=== PATIENT | male | born 1990 | race Asian ===

== ENCOUNTER 2019-02-15 10:25 | Inpatient (IN) | payer MEDICAID, OTHER ==
[~2019-02-15] VITALS: Ht 170.2 cm; Wt 73.4 kg
[2019-02-15 10:28] VITALS: Ht 170.2 cm; Wt 73.4 kg
[2019-02-15] MEDS ORDERED: SOD CHLORIDE 0.9% 0 ML IV ONE (11:15)
[2019-02-15] MEDS ORDERED: IOHEXOL 300MG/ML 150 ML BTL ONE (11:34)
[2019-02-15] MEDS ORDERED: SOD CHLORIDE 0.9% 100 ML ONE (11:34)
--- NOTE | 2019-02-15 13:17 | ERD ---
ER Documentation Chief Complaint Chief Complaint pt is bib self sent by urgent care for low hgb, HPI 28-year-old male who presents to the emergency room for evaluation of anemia. The patient has had several weeks of gross hematuria that has been worked up by Dr. Vuong, urologist. However the patient was having preop investigation for cystoscopy and was noted to have a low hemoglobin. The patient does describe some fatigue and malaise over the last several days. He denies any chest pain or significant shortness of breath. Patient states that his gross hematuria last occurred yesterday. He has no abdominal pain and no flank pain. No recent falls or injuries. ROS All systems reviewed and are negative except as per history of present illness. Medications Home Meds No Active Prescriptions or Reported Meds Allergies Allergies: Coded Allergies: No Known Allergy (Unverified , 02/15/19) PMhx/Soc History of Surgery: No Anesthesia Reaction: No Hx Neurological Disorder: No Hx Respiratory Disorders: No Hx Cardiac Disorders: No Hx Psychiatric Problems: No Hx Miscellaneous Medical Probl: No Hx Alcohol Use: No Hx Substance Use: No Hx Tobacco Use: No Smoking Status: Never smoker FmHx Family History: No diabetes Physical Exam Vitals Vital Signs Date Temp Pulse Resp B/P (MAP) Pulse Ox O2 O2 Flow FiO2 Time Delivery Rate 02/15/19 98.6 78 18 108/67 100 Room Air 12:53 (81) 02/15/19 98.3 96 16 130/62 98 10:28 (84) Physical Exam General: Pallor, no distress Head: Normocephalic, atraumatic. Eyes: Pupils equally reactive, EOM intact ENT: Moist mucous membranes Neck: Supple, no lymphadenopathy Respiratory: Lungs clear bilaterally, no distress Cardiovascular: RRR, no murmurs, rubs, or gallops Abdominal: Soft, non-tender, non-distended, no peritoneal signs : Deferred MSK: No edema, no unilateral swelling, 5/5 strength Neurologic: Alert and oriented, moving all extremities, normal speech, no focal weakness, no cerebellar signs Skin: No rash, no petechia or purpura Psych: Normal mood Result Diagram: 02/15/19 1040 02/15/19 1040 Results 24 hrs Laboratory Tests Test 02/15/19 10:40 White Blood Count 2.5 10^3/ul Red Blood Count 3.78 10^6/ul Hemoglobin 5.5 g/dl Hematocrit 21.1 % Mean Corpuscular Volume 55.8 fl Mean Corpuscular Hemoglobin 14.6 pg Mean Corpuscular Hemoglobin Concent 26.1 g/dl Red Cell Distribution Width 19.7 % Platelet Count 361 10^3/UL Mean Platelet Volume fl Immature Granulocytes % 0.400 % Neutrophils % 50.8 % Lymphocytes % 34.5 % Monocytes % 11.5 % Eosinophils % 1.6 % Basophils % 1.2 % Nucleated Red Blood Cells % 0.0 /100WBC Immature Granulocytes # 0.010 10^3/ul Neutrophils # 1.3 10^3/ul Lymphocytes # 0.9 10^3/ul Monocytes # 0.3 10^3/ul Eosinophils # 0.0 10^3/ul Basophils # 0.0 10^3/ul Nucleated Red Blood Cells # 0.0 10^3/ul Pathologist Review (Hematology) YES Prothrombin Time 13.2 Sec Prothrombin Time Ratio 1.0 INR International Normalized Ratio 0.99 Activated Partial Thromboplast Time 27.5 Sec Sodium Level 141 mmol/L Potassium Level 3.9 mmol/L Chloride Level 107 mmol/L Carbon Dioxide Level 26 mmol/L Anion Gap 8 Blood Urea Nitrogen 12 mg/dl Creatinine 0.83 mg/dl Est Glomerular Filtrat Rate mL/min > 60 mL/min Glucose Level 109 mg/dl Calcium Level 8.8 mg/dl Total Bilirubin 0.5 mg/dl Direct Bilirubin 0.00 mg/dl Indirect Bilirubin 0.5 mg/dl Aspartate Amino Transf (AST/SGOT) 16 IU/L Alanine Aminotransferase (ALT/SGPT) 23 IU/L Alkaline Phosphatase 47 IU/L Total Protein 7.2 g/dl Albumin 4.4 g/dl Globulin 2.80 g/dl Albumin/Globulin Ratio 1.57 Current Medications Medications Dose Sig/Niraj Start Time Status Last (Trade) Ordered Route PRN Stop Time Admin Dose Reason Admin Sodium 0 ml @ 0 Q0M ONCE 02/15/19 DC 02/15/19 Chloride mls/hr IV 11:15 12:55 02/15/19 11:17 IV Flush 10 ml STK-MED 02/15/19 DC 02/15/19 (NS 10 ml) ONCE .ROUTE 11:33 11:58 02/15/19 11:34 Sodium 100 ml @ ud STK-MED 02/15/19 DC 02/15/19 Chloride ONCE .ROUTE 11:34 11:58 02/15/19 11:35 Iohexol 150 ml STK-MED 02/15/19 DC 02/15/19 (Omnipaque ONCE .ROUTE 11:34 11:58 300mg/ ml) 02/15/19 11:35 Procedures/MDM EKG, MONITORS, & DIAGNOSTIC IMAGING: CXR Chest x-ray: I reviewed and interpreted a 1 view of the chest Mediastinum: No enlargement Cardiac silhouette: No cardiomegaly Airspace: Clear lung ferrara bilaterally without evidence of pneumothorax Bones: No evidence of fracture CT urogram: IMPRESSION: Unremarkable CT urogram, no evidence of urolithiasis or obstructive uropathy. LAB INTERPRETATION: I reviewed the laboratory testing and it shows white blood count of 2.5 and hemoglobin of 5.5, microcytic, normal platelets MEDICAL DECISION MAKING: The patient has been dealing with gross hematuria for subacute timeframe. The patient has evidence of symptomatic anemia with a hemoglobin of 5.5. Patient's white blood cell count is slightly low but platelets are normal. This is more likely related to acute phase reactant rather than blood malignancy [facility] hematology oncology consultation may be reasonable. I discussed the case with Dr. Vuong, the patient's urologist who recommends CT urogram. He will consult on the patient as an inpatient. I discussed with the patient and/or family the risks, benefits, alternatives of blood transfusion. This includes allergic reaction and infections including HIV and hepatitis. The patient and/or family were able to verbalize these risks, stated understanding. A document has been signed and placed in the chart. ER COURSE: * The patient was transfused 2 units of packed red blood cells. He remains him dynamically stable. Urology is notified. The patient will be admitted for further management. He is n.p.o. CONSULTATION: Urology: Dr. Vuong DISPOSITION PLAN: Accepting care team and consultations: I discussed the current laboratory data, diagnostic imaging and emergency care provided. Admitting team: Dr. Negro Admitting team indication: Insurance directed Departure Diagnosis: Primary Impression: Gross hematuria Additional Impression: Symptomatic anemia Condition: Stable MISTY CAMP MD Feb 15, 2019 13:17
[2019-02-15] MEDS ORDERED: ACETAMINOPHEN 325 MG TAB PO PRN ×2 (13:30→14:30)
[2019-02-15] MEDS ORDERED: ONDANSETRON 4 MG INJ IV PRN ×2 (13:30→14:30)
[2019-02-15] MEDS ORDERED: NACL 0.9% 3 ML SYG IV SCH (14:30)
--- NOTE | 2019-02-15 14:32 | HP ---
Date/Time of Note Date/Time of Note DATE: 02/15/19 TIME: 14:20 Assessment/Plan VTE Prophylaxis SCD applied (from Nsg): Yes Pharmacological prophylaxis: NA/contraindicated Pharm contraindication: low risk/ambulating Lines/Catheters IV Catheter Type (from Nrs): Saline Lock Assessment/Plan Assessment/Plan 28 Telugu man no PMH presents with chronic gross painless hematuria. #Gross hematuria - Painless. Has been constant for months. - Symptoms unfortunately have resolved for past several days. Current UA totally clear except for 1+ RBCs. - CT urogram negative. - Will send urine calcium/Cr ratio to assess for hypercalciuria - Dr. Vuong following. Plan for cystoscopy (possibly) this admission. #Anemia - Due to chronic hematuria - Transfuse to Hgb>7 - Will admit to med/surg DVT: SCDs GI: None Result Diagram: 02/15/19 1040 02/15/19 1040 HPI/ROS Admit Date/Time Admit Date/Time 02/15/2019 Hx of Present Illness Mr. Cartagena is a pleasant 28 yo Telugu man who presents to the ED with severe anemia after months of gross hematuria. Symptoms first started about 7 months ago, he suddenly noticed his urine was dark red (pointed to the blood transfusion tubing and said it was that color). Mostly painless; although he says he sometimes has vague aching groin pain at the base of his penis. Gross hematuria has been constant for these months, he says only sometimes the urine turns light red or pink. He visited Dr. Vuong's urology clinic and has had two cystoscopies already, which the patient said were inconclusive. The patient last had gross hematuria on Monday. However for the past week he reports urine has actually been clear yellow. The patient was on vacation in [place] this past week and noticed that he was very dyspneic on exertion and sometimes had heart palpitations. On Monday when he came back to [place] he had lab work done. Today (Monday) he was called by Dr. Vuong's office and said he was very anemic (Hgb 5.5) and told to come to the ED. This is his first hospital admission and first blood transfusion ever. In the ED he was afebrile, vitals normal. Labs notable for anemia to 5.5, WBC 2.5. BMP unremarkable. CT urogram showed some benign phleboliths, otherwise unremarkable. ROS Denies recent fever, chills, weight loss, night sweats, anorexia, fatigue, headache, vision changes, dizziness, vertigo, dysphagia, sore throat, neck pain/stiffness, chest pain/pressure, cough, dyspnea, nausea, vomiting, abdominal pain, muscle aches, diarrhea, constipation, melena, hematochezia. PMH/Family/Social Past Medical History Medical History: no pertinent history Medications Current Medications Ondansetron HCl (Zofran Inj) 4 mg BRIDGE ORDER PRN IV NAUSEA/VOMITING; Start 02/15/19 at 13:30; Stop 02/16/19 at 13:29 Acetaminophen (Tylenol Tab) 650 mg ER BRIDGE PRN PO .MILD PAIN 1-3 OR TEMP; Start 02/15/19 at 13:30; Stop 02/16/19 at 13:29 IV Flush (NS 3 ml) 3 ml PER PROTOCOL IV ; Start 02/15/19 at 14:30; Status UNV Ondansetron HCl (Zofran Inj) 4 mg Q6H PRN IV NAUSEA/VOMITING; Start 02/15/19 at 14:30; Status UNV Acetaminophen (Tylenol Tab) 650 mg Q6H PRN PO .PAIN 1-3 OR TEMP; Start 02/15/19 at 14:30; Status UNV Coded Allergies: No Known Allergy (Unverified , 02/15/19) Past Surgical History Past Surgical Hx: no surgical history Family History Significant Family History: other (Father had aneurysm and possible lung cancer. Mother has hypertension and "big heart". Patient is an only child. No kn own history of kidney or bladder problems or cancer.) Social History Born and raised in [facility]. Since symptoms started he has travelled to [place] and also the [place]. About 2-3 years ago he travelled to [facility] where he stayed with relatives in [facility] for 2 months. He did take trips to rural areas. Had several mosquito bites. 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 Alcohol Use: sober Smoking Status: Never smoker Drug Use: none Exam/Review of Systems Vital Signs Vitals Vital Signs Date Temp Pulse Resp B/P (MAP) Pulse Ox O2 O2 Flow FiO2 Time Delivery Rate 02/15/19 98.6 78 18 108/67 100 Room Air 12:53 (81) Exam Exam Gen: Well appearing young man sitting up in bed in no acute distress. Eyes: PERRL, no icterus, EOMI HEENT: Moist mucous membranes, clear oropharynx Neck: No lymphadenopathy, supple Card: Regular rate and rhythm, no murmurs Pulm: Clear to auscultation bilaterally Abd: Soft, nontender, nondistended. No palpable heptosplenomegaly. No suprapubic tenderness. Back: No costovertebral angle tenderness. : Testicles small, firm, nontender; epidydimus soft, nontender, penis circumcised, no discharge or lesions. Petechiae on undersurface of scrotum. Ext: No cyanosis/clubbing/edema KIMBERLY HOFFMAN MD Feb 15, 2019 14:30
[2019-02-15 17:24] VITALS: BP 103/59; PULSE 72; RESP 18
[2019-02-15 19:45] VITALS: BP 92/51; PULSE 70; RESP 18
[2019-02-15 20:45] VITALS: BP 96/54; PULSE 68; RESP 18
[2019-02-16 04:38] VITALS: BP 100/64; PULSE 63; RESP 18
[2019-02-16 08:06] VITALS: BP 104/57; PULSE 70; RESP 18
[2019-02-16 14:38] VITALS: BP 94/57; PULSE 67; RESP 18
--- NOTE | 2019-02-16 16:41 | PDOCDIS ---
Discharge Instructions DIAGNOSIS Discharge Diagnosis Chronic blood loss anemia CONDITION [id number] Patient Condition: [id number] Good HOME CARE INSTRUCTIONS: [id number] Diet Instructions: Erfex4m Regular ACTIVITY: [id number] Activity Restrictions: Supxt5c No Restrictions FOLLOW UP/APPOINTMENTS Follow-up Plan 1. See Dr. Vuong in his clinic at noon on Monday. 2. For worsening shortness of breath at rest or persistent heart palpitations, return to the emergency room. KIMBERLY HOFFMAN MD Feb 16, 2019 16:41
--- NOTE | 2019-02-16 19:30 | DS ---
Date/Time of Note Date/Time of Note DATE: 02/16/19 TIME: : Discharge Summary Admission/Discharge Info Admit Date/Time Feb 15, 2019 at 13:13 Discharge Date/Time Feb 16, 2019 at 18:55 Discharge Diagnosis Chronic blood loss anemia Patient Condition: Good Consults Dr Vuong, urology Procedures None Hx of Present Illness Mr. Cartagena is a pleasant 28 yo English man who presents to the ED with severe anemia after months of gross hematuria. Symptoms first started about 7 months ago, he suddenly noticed his urine was dark red (pointed to the blood transfusion tubing and said it was that color). Mostly painless; although he says he sometimes has vague aching groin pain at the base of his penis. Gross hematuria has been constant for these months, he says only sometimes the urine turns light red or pink. He visited Dr. Vuong's urology clinic and has had two cystoscopies already, which the patient said were inconclusive. The patient last had gross hematuria on Monday. However for the past week he reports urine has actually been clear yellow. The patient was on vacation in [place] this past week and noticed that he was very dyspneic on exertion and sometimes had heart palpitations. On Monday when he came back to [place] he had lab work done. Today (Monday) he was called by Dr. Vuong's office and said he was very anemic (Hgb 5.5) and told to come to the ED. This is his first hospital admission and first blood transfusion ever. In the ED he was afebrile, vitals normal. Labs notable for anemia to 5.5, WBC 2.5. BMP unremarkable. CT urogram showed some benign phleboliths, otherwise unremarkable. Hospital Course The patient was transfused three units PRBCs total to Hgb 8.5. He was monitored overnight with no more gross hematuria. Dr Vuong was consulted, he does not think inpatient cystoscopy is necessary. He will see the patient in clinic on Monday. The patient said his fatigue and dyspnea on exertion completely resolved after transfusion. Home Meds No Active Prescriptions or Reported Meds Follow-up Plan 1. See Dr. Vuong in his clinic at noon on Monday. 2. For worsening shortness of breath at rest or persistent heart palpitations, return to the emergency room. Primary Care Provider Not On Staff Doctor Time spent on discharge: > 30 minutes Pending Labs Laboratory Tests Test 02/16/19 04:45 02/16/19 14:49 White Blood Count 3.5 10^3/ul (4.8-10.8) 2.9 10^3/ul (4.8-10.8) Red Blood Count 3.98 10^6/ul (4.70-6.10) 4.56 10^6/ul (4.70-6.10) Hemoglobin 6.8 g/dl (14.0-18.0) 8.5 g/dl (14.0-18.0) Hematocrit 24.1 % (42.0-52.0) 28.7 % (42.0-52.0) Mean Corpuscular Volume 60.6 fl (82.0-101.0) 62.9 fl (82.0-101.0) Mean Corpuscular 17.1 pg (29.0-33.0) 18.6 pg (29.0-33.0) Hemoglobin Mean Corpuscular 28.2 g/dl (32.0-37.0) 29.6 g/dl (32.0-37.0) Hemoglobin Concent Red Cell Distribution 27.4 % (11.5-14.5) 28.6 % (11.5-14.5) Width Platelet Count 240 10^3/UL (140-415) 270 10^3/UL (140-415) Mean Platelet Volume fl (7.4-10.4) fl (7.4-10.4) Immature Granulocytes % 0.300 % (0.001-0.429) 0.300 % (0.001-0.429) Neutrophils % 42.7 % (39.0-77.0) 45.9 % (39.0-77.0) Lymphocytes % 40.8 % (15.0-51.0) 36.1 % (15.0-51.0) Monocytes % 12.4 % (0.0-11.0) 13.3 % (0.0-11.0) Eosinophils % 2.9 % (0.0-7.0) 3.4 % (0.0-7.0) Basophils % 0.9 % (0.0-2.0) 1.0 % (0.0-2.0) Nucleated Red Blood Cells 0.0 /100WBC (0.0-0.0) 0.0 /100WBC (0.0-0.0) % Immature Granulocytes # 0.010 10^3/ul (0.0-0.031) 0.010 10^3/ul (0.0-0.031) Neutrophils # 1.5 10^3/ul (1.6-7.5) 1.4 10^3/ul (1.6-7.5) Lymphocytes # 1.4 10^3/ul (0.8-2.9) 1.1 10^3/ul (0.8-2.9) Monocytes # 0.4 10^3/ul (0.3-0.9) 0.4 10^3/ul (0.3-0.9) Eosinophils # 0.1 10^3/ul (0.0-0.5) 0.1 10^3/ul (0.0-0.5) Basophils # 0.0 10^3/ul (0.0-0.1) 0.0 10^3/ul (0.0-0.1) Nucleated Red Blood Cells 0.0 10^3/ul (0.0-0.0) 0.0 10^3/ul (0.0-0.0) # Sodium Level 141 mmol/L (135-144) Potassium Level 4.2 mmol/L (3.5-5.1) Chloride Level 108 mmol/L (97-110) Carbon Dioxide Level 26 mmol/L (21-31) Anion Gap 7 (5-13) Blood Urea Nitrogen 14 mg/dl (7-20) Creatinine 0.89 mg/dl (0.61-1.24) Est Glomerular Filtrat > 60 mL/min (>60) Rate mL/min Glucose Level 90 mg/dl (70-220) Hemoglobin A1c 5.5 % (0-5.9) Calcium Level 8.7 mg/dl (8.4-10.2) Phosphorus Level 4.4 mg/dl (2.5-4.9) Magnesium Level 2.2 mg/dl (1.7-2.5) Total Bilirubin 0.5 mg/dl (0.2-1.3) Direct Bilirubin 0.00 mg/dl (0.00-0.20) Indirect Bilirubin 0.5 mg/dl (0-1.1) Aspartate Amino 19 IU/L (15-46) Transf (AST/SGOT) Alanine 22 IU/L (13-69) Aminotransferase (ALT/SGPT ) Alkaline Phosphatase 42 IU/L (42-121) Total Protein 5.9 g/dl (6.1-8.1) Albumin 3.7 g/dl (3.3-4.9) Globulin 2.20 g/dl (1.3-3.2) Albumin/Globulin Ratio 1.68 Triglycerides Level 48 mg/dl (0-149) Cholesterol Level 139 mg/dl (100-200) LDL Cholesterol, 63 mg/dl Calculated HDL Cholesterol 66 mg/dl (28-63) Cholesterol/HDL Ratio 2.1 RATIO Thyroid Stimulating 2.850 MIU/L (0.465-4.680) Hormone (TSH) KIMBERLY HOFFMAN MD Feb 16, 2019 19:30
== END 2019-02-16 18:55 | disposition home or self-care (01) | DRG 812 ==
LOC: E/R 10:25 → 2NE 13:13 → SUATTDRO 14:00
PROVIDERS: ADMIT Internal Medicine; ATTEND Internal Medicine
PROC: 30233N1 Transfusion of Nonautologous Red Blood Cells into Peripheral Vein, Percutaneous Approach (ICD-10-PCS; 2019-02-15)
PROC: 30233N1 Transfusion of Nonautologous Red Blood Cells into Peripheral Vein, Percutaneous Approach (ICD-10-PCS; principal; 2019-02-16)
DX: D50.0 Iron deficiency anemia secondary to blood loss (chronic) (principal); R31.0 Gross hematuria
CPT/HCPCS: 36415; 36430; 71045; 74178; 80053; 80061; 81001; 82310; 83036; 83735; 84100; 84155; 84443; 85025; 85610; 85730; 86850; 86900; 86901; 86920; J7040; P9016; Q9967